=== PATIENT | female | born 1960 | race African-American/Black ===

== ENCOUNTER 2021-03-23 15:48 | Emergency (ER) | payer MEDICARE, MEDICAID ==
[~2021-03-23] VITALS: Ht 167.6 cm; Wt 73.0 kg
[2021-03-23 15:50] VITALS: BP 167/100
[2021-03-23] MEDS ORDERED: ACETAMINOPHEN 325MG TABLET PO ONE (16:45)
== END 2021-03-23 17:07 | disposition home or self-care (01) ==
LOC: ER 15:48
DX: M79.10 Myalgia, unspecified site (principal); F20.9 Schizophrenia, unspecified
CPT/HCPCS: 93005; 99283